=== PATIENT | female | born 1985 | race Two or more races ===

== ENCOUNTER 2016-06-13 16:20 | Emergency (ER) | payer OTHER ==
[2016-06-13 16:39] VITALS: BP 160/62; PULSE 79; RESP 18; TEMP 98; O2SAT 97
[2016-06-13] MEDS ORDERED: DEXAMETHASONE 10 MG/ML VIAL PO ONE (19:15)
[2016-06-13] MEDS ORDERED: BICILLIN L-A 1200000 UNIT/2 ML SYRINGE IM ONE (19:16)
[2016-06-13] MEDS ORDERED: IBUPROFEN 800 MG TAB PO ONE (19:16)
--- NOTE | 2016-06-13 19:24 | UCPHY ---
H & P Time Seen by Provider: 06/13/16 18:50 Patient Type: New HPI/ROS: HPI Sore throat. Fever. 31-year-old female by private vehicle with her daughter. She complains of a sore throat and fever onset this morning. She reports pain with swallowing. No voice changes. No stridor. 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 ROS: Constitutional: No fever, no chills. No weakness. Eyes: No discharge. No changes in vision. ENT: As above. No nasal congestion or rhinorrhea. Respiratory: No cough. No shortness of breath. Gastrointestinal: No abdominal pain, no vomiting, no diarrhea. Musculoskeletal: She has had muscle aches and joint aches. Skin: No rashes. Neurological: No headache. Past medical history: She denies any significant past medical history. Social history: She is here with her daughter. She is a nurse. Physical Exam: General Appearance: Alert, no distress. This patient is responding to questions appropriately and in full sentences. This patient appears well- hydrated and well-nourished. Eyes: Pupils equal and round no pallor or injection. No lid edema, erythema or injection. ENT, Mouth: Mucous membranes are moist. Pharyngeal erythema with mild pharyngeal edema and diffuse whitish exudates posterior pharynx and pharyngeal arches. No asymmetry suggestive of abscess. No stridor on auscultation of her neck. No voice changes. Respiratory: There are no retractions, lungs are clear to auscultation with good air movement bilaterally. Cardiovascular: Regular rate and rhythm. No murmur. Neurological: Motor sensory function is grossly intact. Cranial nerves are normal. Gait is normal. Skin: Warm and dry, no rashes. Musculoskeletal: Neck is supple and nontender. She has bilateral anterior cervical lymphadenopathy. Extremities are symmetrical. All joints range without pain or impingement. Psychiatric: No agitation. No depression. Database: Rapid strep: Negative. EKG: Imaging: Procedures: Emergency department course: The patient is a registered nurse. Although her rapid strep was negative. She is requesting antibiotics. The pros and cons of this were discussed with her. She was given a IM injection penicillin G long acting. She was given 600 mg of ibuprofen and 10 mg of Decadron. I explained that she may have mononucleosis. Treatment of which is primarily supportive in with ibuprofen and steroids. She feels comfortable going home and I feel she is safe for discharge. Follow-up and return to emergency department precautions reviewed with her. All of her questions were answered. She was discharged in good condition. Differential Diagnosis: The differential diagnosis on this patient includes but is not limited to streptococcal pharyngitis, viral pharyngitis, mononucleosis. Retropharyngeal abscess, peritonsillar abscess, This represents a partial list of diagnoses considered. These considerations are based on history, physical exam, past history, reassessment and diagnostic testing. Smoking Status: Never smoked Constitutional: Initial Vital Signs Temperature (C) 36.6 C 06/13/16 16:37 Heart Rate 79 06/13/16 16:37 Respiratory Rate 18 06/13/16 16:37 Blood Pressure 160/62 H 06/13/16 16:37 O2 Sat (%) 97 06/13/16 16:37 O2 Delivery Mode Room Air Allergies/Adverse Reactions: No Known Allergies Allergy (Unverified 06/13/16 16:37) Home Medications: Medication Instructions Recorded Dexamethasone [Decadron 4 MG (RX)] 8 mg PO ONCE #2 tab 06/13/16 Medical Decision Making - Data Points Laboratory Results: 06/13/16 06/13/16 Unknown 16:40 Group A Strep Screen NEGATIVE (NEGATIVE) Group A Strep DNA Pending Departure - Departure Disposition: Home, Routine, Self-Care Clinical Impression: Pharyngitis Condition: Good Instructions: Pharyngitis (ED) Additional Instructions: Read and follow provided instructions. Follow-up with your primary care physician in 1-2 days for re-evaluation. Take medication as prescribed. 1 time dose of Decadron to be taken tomorrow afternoon. Ibuprofen dosin mg every 6 hours with meals for the next 3 days only. Return to the emergency department for worsening pain, difficulty swallowing, voice changes, stridor or other serious concerns. Referrals: NONE *PRIMARY CARE P,. [Primary Care Provider] - As per Instructions Prescriptions: Dexamethasone [Decadron 4 MG (RX)] 8 mg PO ONCE #2 tab - PQRS PQRS Measurement: Not applicable.
[2016-06-13] MEDS ORDERED: IBUPROFEN 200 MG TAB PO ONE (19:33)
[2016-06-13] MEDS ORDERED: DEXAMETHASONE 4 MG TAB ONE (19:33)
[2016-06-13] MEDS ORDERED: IBUPROFEN 600 MG TAB PO ONE (19:33)
== END 2016-06-13 19:35 | disposition home or self-care (01) ==
LOC: CED 16:20
DX: J02.9 Acute pharyngitis, unspecified (principal)
CPT/HCPCS: 87880-PO; 96372-PO; G0463-PO; J0561